=== PATIENT | female | born 1990 | race Caucasian/White ===

== ENCOUNTER 2019-01-01 07:16 | Emergency (ER) | payer MEDICAID ==
[~2019-01-01] VITALS: Ht 165.1 cm; Wt 66.0 kg
[2019-01-01] MEDS ORDERED: KETOROLAC 30MG/ML VIAL IM ONE (08:15)
[2019-01-01] MEDS ORDERED: ONDANSETRON 4MG ODT PO ONE (08:15)
[2019-01-01 08:54] LABS: CLARITY URINE TURBID (CLEAR); COLOR URINE YELLOW (YELLOW); KETONES URINE NEGATIVE (NEGATIVE); LEUKOCYTE ESTERASE URINE 2+ (NEGATIVE); NITRITE URINE NEGATIVE (NEGATIVE); OCCULT BLOOD URINE 3+ (NEGATIVE); PROTEIN URINE 1+ (NEGATIVE); SPECIFIC GRAVITY URINE 1.026 (1.005-1.030)
[2019-01-01 11:11] LABS: HEMATOCRIT 36.6 % (36.0-48.0); HEMOGLOBIN 12.5 g/dL (12.0-16.0); MEAN CORPUSCULAR VOLUME 90.7 fL (81.0-99.0); PLATELET 286 x1000/uL (130-400); RED BLOOD CELL COUNT 4.03 mill/uL (4.2-5.4); RED CELL DISTRIBUTION WIDTH 12.8 % (11.6-14.6)
[2019-01-01] MEDS ORDERED: CEFTRIAXONE 1 G PREMIX 50 ML IV ONE (11:15)
[2019-01-01 11:19] LABS: CHLORIDE 109 mEq/L (98-107)
[2019-01-01 11:37] LABS: HCG SCREEN NEGATIVE
[2019-01-01 14:15] VITALS: BP 112/55
== END 2019-01-01 14:32 | disposition short-term general hospital (02) ==
LOC: ER 08:19
DX: N20.0 Calculus of kidney (principal)
CPT/HCPCS: 36415; 74176; 80053; 81003; 81025; 84703; 85027; 87086; 96365; 96372; 99285; J0696; J1885; Q0162